=== PATIENT | male | born 2000 | race Caucasian/White ===

== ENCOUNTER 2022-02-06 10:28 | Emergency (ER) | payer OTHER ==
[~2022-02-06] VITALS: Ht 180.3 cm; Wt 62.0 kg
[2022-02-06] MEDS ORDERED: NS 1,000 ML IV SCH (11:25)
[2022-02-06 11:44] LABS: BASO # 0.1 10^3/uL (0.0-0.2); BASO % 1.2 % (0.0-1.0); EOS # 0.3 10^3/uL (0.0-0.5); EOS % 6.2 % (0.0-3.0); HEMOGLOBIN 14.2 g/dl (13.5-17.5); LYMPH # 1.4 10^3/uL (1.5-5.0); LYMPH % 32.9 % (24.0-44.0); MEAN CORPUSCULAR HEMOGLOBIN 30.5 pg (27.0-33.0); MEAN CORPUSCULAR HGB CONC 35.5 g/dl (32.0-36.5); MONO # 0.6 10^3/uL (0.0-0.8); MONO % 13.8 % (2.0-8.0); NEUTROPHILS # 1.9 10^3/uL (1.5-8.5); NEUTROPHILS % 45.7 % (36.0-66.0); PLATELET COUNT, AUTOMATED 225 10^3/uL (150-450); RED BLOOD COUNT 4.65 10^6/uL (4.30-6.10); WHITE BLOOD COUNT 4.2 10^3/uL (4.0-10.0)
[2022-02-06 12:01] LABS: INR 0.98; PROTHROMBIN TIME 13.4 SECONDS (12.7-14.5)
[2022-02-06 12:02] LABS: PARTIAL THROMBOPLASTIN TIME 31.4 SECONDS (25.9-37.0)
[2022-02-06 12:14] LABS: CK-MB VALUE MASS 1.3 NG/ML (<3.6); MB/CK RELATIVE INDEX 1.11 (< OR =4)
[2022-02-06 12:17] LABS: D-DIMER QUANT < 270 ng/ml (<500)
[2022-02-06 12:19] LABS: RSV AMPLIFICATION NEGATIVE (NEGATIVE)
[2022-02-06 12:34] LABS: ALBUMIN 4.1 GM/DL (3.2-5.2); ALT/SGPT 23 U/L (12-78); BILIRUBIN,DIRECT 0.3 MG/DL (0.0-0.2); BILIRUBIN,TOTAL 0.9 MG/DL (0.2-1.0); FREE T4 1.21 NG/DL (0.78-1.33); NT-PRO BNP 13 PG/ML (<125); THYROID STIMULATING HORMONE 0.668 uIU/ML (0.463-3.98)
[2022-02-06 14:45] VITALS: BP 122/60
== END 2022-02-06 15:08 | disposition home or self-care (01) ==
LOC: M ED 10:28
DX: M94.0 Chondrocostal junction syndrome [Tietze] (principal)